=== PATIENT | female | born 1970 | race Caucasian/White ===

== ENCOUNTER 2017-03-24 13:07 | Emergency (ER) | payer MEDICAID ==
[~2017-03-24] VITALS: Ht 160 cm; Wt 57.2 kg
[2017-03-24 13:12] VITALS: BP 117/77
[2017-03-24] MEDS ORDERED: METHOCARBAMOL 750 MG TABLET ONE (13:42)
[2017-03-24] MEDS ORDERED: HYDROcodone/APAP 5/325 TABLET ONE (13:42)
[2017-03-24] MEDS ORDERED: METHOCARBAMOL 750 MG TABLET PO ONE (14:00)
[2017-03-24] MEDS ORDERED: HYDROcodone/APAP 5/325 TABLET PO ONE (14:00)
== END 2017-03-24 14:40 | disposition home or self-care (01) ==
LOC: ED 14:34
DX: S39.012A Strain of muscle, fascia and tendon of lower back, initial encounter (principal); M51.36 Other intervertebral disc degeneration, lumbar region; V29.9XXA Motorcycle rider (driver) (passenger) injured in unspecified traffic accident, initial encounter; Y93.55 Activity, bike riding; Y92.89 Other specified places as the place of occurrence of the external cause; Y99.8 Other external cause status
CPT/HCPCS: 72110; 99284

== ENCOUNTER 2019-01-15 13:33 | Emergency (ER) | payer MEDICAID ==
[~2019-01-15] VITALS: Ht 160 cm; Wt 54.6 kg
[2019-01-15 13:36] VITALS: BP 117/81
[2019-01-15] MEDS ORDERED: KETOROLAC 30 MG/1 ML ONE (14:19)
[2019-01-15] MEDS ORDERED: CYCLOBENZAPRINE 10 MG TABLET ONE (14:19)
[2019-01-15] MEDS ORDERED: CYCLOBENZAPRINE 10 MG TABLET PO ONE (14:30)
[2019-01-15] MEDS ORDERED: KETOROLAC 30 MG/1 ML IM ONE (14:30)
--- NOTE | 2019-01-15 15:07 | NUR ---
Patient/Caregiver given discharge instructions and they have confirmed that they understand the instructions. Patient ambulatory with steady gait.
== END 2019-01-15 15:21 | disposition home or self-care (01) ==
LOC: ED 15:08
DX: S16.1XXA Strain of muscle, fascia and tendon at neck level, initial encounter (principal); X58.XXXA Exposure to other specified factors, initial encounter; Y93.89 Activity, other specified; Y92.89 Other specified places as the place of occurrence of the external cause; Y99.8 Other external cause status
CPT/HCPCS: 72050; 96372; 99283; J1885